=== PATIENT | female | born 1980 | race Caucasian/White ===

== ENCOUNTER 2023-09-24 13:16 | Outpatient (CLI) | payer OTHER, SELFPAY | END 2023-09-24 13:17 | disposition home or self-care (01) | LOC: NFLDREF 09-25 10:57 | PROVIDERS: Visit Provider Nurse Practitioner Family | DX: R39.9 Unspecified symptoms and signs involving the genitourinary system (principal); N30.90 Cystitis, unspecified without hematuria | CPT/HCPCS: 87086 ==